=== PATIENT | male | born 1935 | race Caucasian/White ===

== ENCOUNTER 2017-01-25 14:11 | Outpatient (CLI) | payer MEDICARE, OTHER | END 2017-01-25 14:12 | disposition critical access hospital (66) | DX: R31.9 Hematuria, unspecified (principal); R42 Dizziness and giddiness | CPT/HCPCS: A0425; A0427 ==

== ENCOUNTER 2017-01-25 14:44 | Emergency (ER) | payer MEDICARE, OTHER ==
--- NOTE | 2017-01-25 15:14 | ED Physician Documentation ---
History of Present Illness - Stated complaint Stated Complaint: HEMATURIA - Chief complaint Chief Complaint: General - History obtained from History obtained from: Patient, Family, EMS - History of Present Illness Timing: How many days ago (2) Pain level max: 0 Pain level now: 0 Improved by: nothing Worsened by: nothing - Additonal information Additional information: Patient presents to the emergency department with hematuria for the last 2 days. Recently had his warfarin dose increased. Supposed to have his INR checked tomorrow. Denies any urinary frequency, discomfort. Denies any recent trauma. Denies any back pain or abdominal pain. States this has happened him in the past with warfarin. Review of Systems Constitutional: denies: Fever, Chills Respiratory: denies: Cough GI: denies: Nausea, Vomiting, Diarrhea Skin: denies: Rash Musculoskeletal: denies: Neck pain, Back pain Neurologic: denies: Focal weakness, Numbness, Headache PD PAST MEDICAL HISTORY - Past Medical History Cardiovascular: Congestive heart failure, Hypertension, High cholesterol, Coronary artery disease, [place], Atrial fibrillation, Arrhythmia, Other Respiratory: Pneumonia, Shortness of breath Neuro: None Endocrine/Autoimmune: Type 2 diabetes GI: None : None Psych: None Musculoskeletal: Osteoarthritis, Chronic back pain Derm: Other - Past Surgical History Past Surgical History: Yes Ortho: Hip replacement Cardiovascular: CABG, Pacemaker, Cardiac catheterization - Present Medications Home Medications: Ambulatory Orders Medication Instructions Recorded Confirmed Aspirin [Aspir 81] 81 mg PO DAILY 11/24/15 11/24/15 Dofetilide [Tikosyn] 250 mcg PO BID 11/24/15 11/24/15 Isosorbide Mononitrate [Isosorbide 30 mg PO DAILY 11/24/15 11/24/15 Mononitrate ER] Levothyroxine [Synthroid] 75 mcg PO QDAC 11/24/15 11/24/15 Losartan [Cozaar] 50 mg PO DAILY 11/24/15 11/24/15 RX: Furosemide 40 mg PO DAILY 11/24/15 11/24/15 RX: Metoprolol Succinate 50 mg PO DAILY 11/24/15 11/24/15 RX: Simvastatin 80 mg PO ACHS 11/24/15 11/24/15 Warfarin [Coumadin] 5 mg PO DAILY 11/24/15 11/24/15 - Allergies Allergies/Adverse Reactions: Allergies Allergy/AdvReac Type Severity Reaction Status Date / Time No Known Drug Allergies Allergy Verified 11/24/15 14:30 - Social History Does the pt smoke?: No Smoking Status: Never smoker Does the pt drink ETOH?: No Does the pt have substance abuse?: No - Immunizations Immunizations are current?: No Immunizations: No immun PD ED PE NORMAL - Vitals Vital signs reviewed: Yes - General General: Alert and oriented X 3, No acute distress, Well developed/nourished - HEENT HEENT: Moist mucous membranes - Neck Neck: Supple, no meningeal sign - Cardiac Cardiac: RRR, Strong equal pulses - Respiratory Respiratory: No respiratory distress, Clear bilaterally - Abdomen Abdomen: Soft, Non tender, Non distended - Back Back: No CVA TTP, No spinal TTP - Derm Derm: Warm and dry, No rash - Neuro Neuro: Alert and oriented X 3 - Psych Psych: Normal mood, Normal affect Results - Vitals Vitals: Vital Signs - 24 hr 01/25/17 01/25/17 14:50 16:28 Temperature 35.9 C L Heart Rate 59 L 67 Respiratory 16 22 Rate Blood Pressure 143/75 H 121/78 O2 Saturation 99 98 Oxygen O2 Source Room air - Labs Labs: Laboratory Tests 01/25/17 01/25/17 01/25/17 15:00 15:19 15:19 WBC 7.0 RBC 3.58 L Hgb 11.6 L Hct 35.5 L MCV 99.2 H MCH 32.4 H MCHC 32.6 RDW 13.6 Plt Count 202 MPV 8.8 Neut # 3.2 Lymph # 2.6 Cass # 0.9 Eos # 0.2 Baso # 0.1 Absolute Nucleated RBC 0.00 Nucleated RBCs 0.0 PT 25.6 H INR 2.2 H Sodium Potassium Chloride Carbon Dioxide Anion Gap BUN Creatinine Estimated GFR (MDRD) Glucose Calcium Total Bilirubin AST ALT Alkaline Phosphatase Total Protein Albumin Globulin Albumin/Globulin Ratio Lipase Urine Color RED/BLOODY Urine Clarity BLOODY Urine pH 6.5 Ur Specific [place] 1.010 Urine Protein TRACE Urine Glucose (UA) NEGATIVE Urine Ketones NEGATIVE Urine Occult Blood LARGE H Urine Nitrite NEGATIVE Urine Bilirubin NEGATIVE Urine Urobilinogen 0.2 (NORMAL) Ur Leukocyte Esterase NEGATIVE Urine RBC TNTC H Urine WBC 0-3 Ur Squamous Epith Cells NONE SEEN Urine Bacteria None Seen Ur Microscopic Review INDICATED Urine Culture Comments NOT INDICATED 01/25/17 15:19 WBC RBC Hgb Hct MCV MCH MCHC RDW Plt Count MPV Neut # Lymph # Cass # Eos # Baso # Absolute Nucleated RBC Nucleated RBCs PT INR Sodium 139 Potassium 4.5 Chloride 104 Carbon Dioxide 26 Anion Gap 9.0 BUN 37 H Creatinine 1.7 H Estimated GFR (MDRD) 39 L Glucose 68 L Calcium 8.9 Total Bilirubin 0.5 AST 18 ALT 16 Alkaline Phosphatase 86 Total Protein 7.5 Albumin 4.2 Globulin 3.3 Albumin/Globulin Ratio 1.3 Lipase 77 H Urine Color Urine Clarity Urine pH Ur Specific [place] Urine Protein Urine Glucose (UA) Urine Ketones Urine Occult Blood Urine Nitrite Urine Bilirubin Urine Urobilinogen Ur Leukocyte Esterase Urine RBC Urine WBC Ur Squamous Epith Cells Urine Bacteria Ur Microscopic Review Urine Culture Comments PD MEDICAL DECISION MAKING - ED course Complexity details: reviewed results, re-evaluated patient, considered differential, d/w patient, d/w family ED course: Patient presents to the emergency department with hematuria. His hemoglobin is stable from prior visits. Creatinine is stable from prior visits. His INR is therapeutic. We will have him hold his warfarin for the next 2-3 days and see if this clears the hematuria. He will follow-up with his doctor later this week for further evaluation if the hematuria does not clear, including potential ultrasound or CT scan. Patient is well-appearing, nontoxic. Otherwise asymptomatic here. Patient counseled regarding signs and symptoms for which I believe and urgent re-evaluation would be necessary. Patient with good understanding of and agreement to plan and is comfortable going home at this time This document was made in part using voice recognition software. While efforts are made to proofread this document, sound alike and grammatical errors may occur. Departure - Departure Disposition: 01 Home, Self Care Clinical Impression: Hematuria Condition: Good Instructions: ED Hematuria Follow-Up: Oswaldo Shepherd MD [Primary Care Provider] - Within 3 Days Comments: Stop your warfarin for the next 3 days. Return if you worsen. Discharge Date/Time: 01/25/17 16:28
[2017-01-25 15:22] LABS: BASOPHILS # (AUTO) 0.1 10^3/uL (0.0-0.1); LYMPHOCYTES # (AUTO) 2.6 10^3/uL (1.5-3.5); MONOCYTES # (AUTO) 0.9 10^3/uL (0.0-1.0)
[2017-01-25 15:25] LABS: EOSINOPHILS # (AUTO) 0.2 10^3/uL (0.0-0.7); EOSINOPHILS % (AUTO) 3.2 %; HCT - HEMATOCRIT 35.5 % (42.0-52.0); HGB - HEMOGLOBIN 11.6 g/dL (14.0-18.0); LYMPHOCYTES % (AUTO) 37.7 %; MEAN CORPUSCULAR HEMOGLOBIN 32.4 pg (27.0-31.0); MEAN CORPUSCULAR HGB CONC 32.6 g/dL (32.0-36.0); MEAN CORPUSCULAR VOLUME 99.2 fL (80.0-94.0); MEAN PLATELET VOLUME 8.8 fL (7.4-11.4); MONOCYTES % (AUTO) 12.9 %; NEUTROPHILS # (AUTO) 3.2 10^3/uL (1.5-6.6); NEUTROPHILS % (AUTO) 45.2 %; RED BLOOD COUNT 3.58 10^6/uL (4.70-6.10); RED CELL DISTRIBUTION WIDTH 13.6 % (12.0-15.0)
[2017-01-25 15:32] LABS: BILIRUBIN,URINE NEGATIVE (NEGATIVE); PH,URINE 6.5 PH (5.0-7.5)
[2017-01-25 15:35] LABS: INR 2.2 (0.8-1.2); PT - PROTHROMBIN TIME 25.6 secs (9.9-12.6)
[2017-01-25 15:36] LABS: ALBUMIN/GLOBULIN RATIO 1.3 (1.0-2.2); BILIRUBIN,TOTAL 0.5 mg/dL (0.2-1.0); CALCIUM 8.9 mg/dL (8.5-10.3); CREATININE 1.7 mg/dL (0.6-1.2); POTASSIUM 4.5 mmol/L (3.5-5.0); TOTAL PROTEIN 7.5 g/dL (6.7-8.2)
[2017-01-25 15:40] LABS: UA w/ MICROSCOPIC CHARGE YES
[2017-01-25 15:42] LABS: UR CULTURE IF IND NOT INDICATED; WBC,URINE 0-3 /HPF (0-3)
[2017-01-25 16:28] VITALS: BP 121/78
== END 2017-01-25 16:28 | disposition home or self-care (01) ==
LOC: EDUNIT# → SUPCPDRO 14:44 → ED 14:44
DX: R31.9 Hematuria, unspecified (principal); Z79.01 Long term (current) use of anticoagulants; Z79.82 Long term (current) use of aspirin; I48.91 Unspecified atrial fibrillation; I11.0 Hypertensive heart disease with heart failure; I50.9 Heart failure, unspecified; I25.10 Atherosclerotic heart disease of native coronary artery without angina pectoris; I25.2 Old myocardial infarction; Z95.1 Presence of aortocoronary bypass graft; Z95.0 Presence of cardiac pacemaker; E11.9 Type 2 diabetes mellitus without complications
CPT/HCPCS: 36415; 80053; 81001; 81003; 83690; 85025; 85610; 87086; 99283

== ENCOUNTER 2018-09-25 03:38 | Outpatient (CLI) | payer MEDICARE, OTHER | END 2018-09-25 03:39 | disposition critical access hospital (66) | LOC: EMS 03:38 | PROVIDERS: ATTEND Surgery | DX: R06.02 Shortness of breath (principal) | CPT/HCPCS: A0425; A0427 ==

== ENCOUNTER 2018-09-25 04:09 | Emergency (ER) | payer MEDICARE, OTHER ==
[2018-09-25] MEDS ORDERED: FUROSEMIDE 40 MG/4 ML VIAL IVP STA (04:19)
--- NOTE | 2018-09-25 04:21 | ED Physician Documentation ---
PD HPI DYSPNEA - Stated complaint Stated Complaint: SOA - Chief complaint Chief Complaint: Resp - History obtained from History obtained from: Patient, EMS - History of Present Illness Timing - onset: Enter time (1999), Last night Timing - onset during: Rest Timing - duration: Hours Timing - details: Gradual onset, Still present Inciting event(s): Exercise, Other (excessive salt) Improved by: O2, Inhaler/neb, Rest, Sitting up Worsened by: Exertion, Laying flat Associated symptoms: Wheezing, Chest pain / discomfort Similar symptoms before: Diagnosis (CHF) Recently seen: Admitted - Additional information Additional information: 82-year-old male with a history of congestive heart failure valvular heart disease a pacemaker in place and coronary artery disease has recently been admitted to [facility] in [place] and he has refused valve replacement to the aortic valve. He has been doing well at home is able to ambulate 40 feet without shortness of breath and yesterday he went out and picked some apples came inside and elapsed. He had salmon for dinner and then yesterday evening he began to get short of breath with some wheezing. This progressed through the night and became intolerable and he called the ambulance. He received a DuoNeb treatment in route to the hospital with some improvement. He was given extra torsemide by his who recognized this as an episode of congestive heart failure. He has been up to [place] twice in the past month he initially refused an angiogram and then when he did get the angiogram done he was advised that he would need a valve replacement and he has decided against this. He is now maintained on diuretics and blood pressure medication. He takes nitro not infre quently. Review of Systems Constitutional: denies: Fever, Chills, Myalgias, Fatigue, Sweats Eyes: denies: Decreased vision Ears: denies: Ear pain Nose: denies: Rhinorrhea / runny nose, Congestion Throat: denies: Sore throat Cardiac: denies: Chest pain / pressure, Palpitations Respiratory: reports: Dyspnea, Cough, Wheezing GI: denies: Abdominal Pain, Nausea, Vomiting : denies: Dysuria, Frequency Skin: denies: Rash, Lesions Musculoskeletal: denies: Neck pain, Back pain, Extremity pain Neurologic: denies: Generalized weakness, Focal weakness, Numbness PD PAST MEDICAL HISTORY - Past Medical History Cardiovascular: Congestive heart failure, Hypertension, High cholesterol, Coronary artery disease, [place], Atrial fibrillation, Arrhythmia, Other Respiratory: Pneumonia, Shortness of breath Endocrine/Autoimmune: Type 2 diabetes GI: None : None Psych: None Musculoskeletal: Osteoarthritis, Chronic back pain Derm: Other - Past Surgical History Past Surgical History: Yes Ortho: Hip replacement Cardiovascular: CABG, Pacemaker, Cardiac catheterization - Present Medications Home Medications: Ambulatory Orders Medication Instructions Recorded Confirmed Aspirin [Aspir 81] 81 mg PO DAILY 11/24/15 11/24/15 Levothyroxine [Synthroid] 75 mcg PO QDAC 11/24/15 09/25/18 Metoprolol Succinate 25 mg PO DAILY 11/24/15 09/25/18 Warfarin [Coumadin] 5 mg PO DAILY 11/24/15 09/25/18 Atorvastatin Calcium 40 mg PO QPM 09/25/18 09/25/18 Gabapentin 1 tab PO QPM 09/25/18 09/25/18 Gabapentin 300 mg PO DAILY 09/25/18 09/25/18 Glimepiride 1 mg PO DAILY 09/25/18 09/25/18 Nitroglycerin [Nitrostat] 0.4 mg SL DAILY PRN 09/25/18 09/25/18 Torsemide 1 - 2 tab PO DAILY 09/25/18 09/25/18 - Allergies Allergies/Adverse Reactions: Allergies Allergy/AdvReac Type Severity Reaction Status Date / Time No Known Drug Allergies Allergy Verified 09/25/18 04:45 - Social History Does the pt smoke?: No Smoking Status: Never smoker Does the pt drink ETOH?: No Does the pt have substance abuse?: No - Immunizations Immunizations are current?: No Immunizations: No immun PD ED PE NORMAL - Vitals Vital signs reviewed: Yes (tachypneic and hypertensive) - General General: Alert and oriented X 3, Well developed/nourished, Other (tachpneic at rest/ ) - HEENT HEENT: Atraumatic, PERRL, EOMI - Neck Neck: Supple, no meningeal sign, No bony TTP - Cardiac Cardiac: RRR, Other (2/6 holosystolic murmer at LSB) - Respiratory Respiratory: Other (tachypnea at rest with rales to mid lung bilaterally) - Abdomen Abdomen: Soft, Non tender - Back Back: No CVA TTP, No spinal TTP - Derm Derm: Normal color, Warm and dry, No rash - Extremities Extremities: No deformity, No edema, Other (skin is very dry and ankles are skinny ) - Neuro Neuro: Alert and oriented X 3, 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, No motor deficit, No sensory deficit, Normal speech Eye Opening: Spontaneous Motor: Obeys Commands Verbal: Oriented GCS Score: 15 - Psych Psych: Normal mood, Normal affect Results - Vitals Vitals: Vital Signs - 24 hr 09/25/18 09/25/18 09/25/18 04:09 04:37 04:56 Temperature 36.8 C Heart Rate 68 63 60 Respiratory 29 H 19 18 Rate Blood Pressure 154/95 H 156/79 H 152/83 H O2 Saturation 94 94 94 09/25/18 09/25/18 09/25/18 05:20 05:50 05:55 Temperature 36.2 C L Heart Rate 60 61 61 Respiratory 18 19 20 Rate Blood Pressure 153/75 H 151/81 H 119/73 O2 Saturation 94 94 94 Oxygen O2 Source Room air - EKG (time done) 0422 Rate: Rate (enter#) (68) Rhythm: Atrial fibrillation Ischemia: ST depression, T wave inversion Compare to prior EKG: Changed from prior EKG (SPT 11-24-2015 the rhythm has changed from paced to afib and the ishemic changes are present) Computer interpretation: Agree with computer - Labs Labs: Laboratory Tests 09/25/18 09/25/18 09/25/18 04:10 04:37 04:37 WBC 6.8 RBC 3.44 L Hgb 11.5 L Hct 34.4 L MCV 100.0 H MCH 33.5 H MCHC 33.4 RDW 14.4 Plt Count 187 MPV 8.3 Neut # (Auto) 4.6 Lymph # (Auto) 1.3 L [place] # (Auto) 0.5 Eos # (Auto) 0.2 Baso # (Auto) 0.1 Absolute Nucleated RBC 0.00 Nucleated RBC % 0.0 PT INR Sodium 137 Potassium 4.8 Chloride 105 Carbon Dioxide 24 Anion Gap 8.0 BUN 30 H Creatinine 1.8 H Estimated GFR (MDRD) 36 L Glucose 152 H Calcium 8.4 L Total Bilirubin 0.9 AST 23 ALT 18 Alkaline Phosphatase 107 Troponin I B-Natriuretic Peptide Total Protein 7.4 Albumin 3.8 Globulin 3.6 Albumin/Globulin Ratio 1.1 Lipase 76 H Urine Color YELLOW Urine Clarity CLEAR Urine pH 6.5 Ur Specific [place] 1.010 Urine Protein NEGATIVE Urine Glucose (UA) NEGATIVE Urine Ketones NEGATIVE Urine Occult Blood TRACE-INTA Urine Nitrite NEGATIVE Urine Bilirubin NEGATIVE Urine Urobilinogen 0.2 (NORMAL) Ur Leukocyte Esterase NEGATIVE Ur Microscopic Review NOT INDICATED Urine Culture Comments NOT INDICATED 09/25/18 09/25/18 09/25/18 04:37 04:37 04:37 WBC RBC Hgb Hct MCV MCH MCHC RDW Plt Count MPV Neut # (Auto) Lymph # (Auto) [place] # (Auto) Eos # (Auto) Baso # (Auto) Absolute Nucleated RBC Nucleated RBC % PT 15.5 H INR 1.4 H Sodium Potassium Chloride Carbon Dioxide Anion Gap BUN Creatinine Estimated GFR (MDRD) Glucose Calcium Total Bilirubin AST ALT Alkaline Phosphatase Troponin I < 0.04 B-Natriuretic Peptide 668 H Total Protein Albumin Globulin Albumin/Globulin Ratio Lipase Urine Color Urine Clarity Urine pH Ur Specific [place] Urine Protein Urine Glucose (UA) Urine Ketones Urine Occult Blood Urine Nitrite Urine Bilirubin Urine Urobilinogen Ur Leukocyte Esterase Ur Microscopic Review Urine Culture Comments - Rads (name of study) 1 view chest Radiology: Prelim report reviewed (Impression: Mild CHF and low lung volumes.), EMP read indepedently, See rad report Procedures - IVC sono (time) 0420 Bedside IVC sono: IVC measures (cm) (2.88), High CVP, Fluid overload PD MEDICAL DECISION MAKING - ED course Complexity details: reviewed old records, reviewed results, re-evaluated patient, considered differential, d/w patient, d/w family ED course: 82-year-old male with advanced coronary artery disease and a congestive heart failure with aortic stenosis has developed flash pulmonary edema and he is administered Lasix 40 mg intravenously here with improvement in his breathing. He wants to go home this morning. He and his are in agreement with this and this does appear appropriate given the circumstances of his refusal for more advanced treatment. I suspect his exacerbation of CHF this morning is related to his exercise yesterday and his consumption of salmon with a high salt content. Departure - Departure Disposition: 01 Home, Self Care Clinical Impression: Flash pulmonary edema Condition: Stable Instructions: ED CHF General Follow-Up: Oswaldo Shepherd MD [Primary Care Provider] -
[2018-09-25 04:37] LABS: BILIRUBIN,URINE NEGATIVE (NEGATIVE); CLARITY,URINE CLEAR (CLEAR); GLUCOSE, URINE (UA) NEGATIVE (NEGATIVE); KETONES,URINE (UA) NEGATIVE (NEGATIVE); LEUKOCYTE ESTERASE, URINE NEGATIVE (NEGATIVE); NITRITE,URINE NEGATIVE (NEGATIVE); OCCULT BLOOD,URINE TRACE-INTA (NEGATIVE); PH,URINE 6.5 PH (5.0-7.5); PROTEIN,URINE NEGATIVE (NEGATIVE); UROBILINOGEN,URINE 0.2 (NORMAL) E.U./dL (NORMAL)
[2018-09-25 04:44] LABS: BASOPHILS # (AUTO) 0.1 10^3/uL (0.0-0.1); BASOPHILS % (AUTO) 2.1 %; EOSINOPHILS # (AUTO) 0.2 10^3/uL (0.0-0.7); EOSINOPHILS % (AUTO) 2.9 %; HGB - HEMOGLOBIN 11.5 g/dL (14.0-18.0); LYMPHOCYTES # (AUTO) 1.3 10^3/uL (1.5-3.5); LYMPHOCYTES % (AUTO) 19.3 %; MEAN CORPUSCULAR HEMOGLOBIN 33.5 pg (27.0-31.0); MEAN CORPUSCULAR HGB CONC 33.4 g/dL (32.0-36.0); MEAN PLATELET VOLUME 8.3 fL (7.4-11.4); MONOCYTES # (AUTO) 0.5 10^3/uL (0.0-1.0); MONOCYTES % (AUTO) 7.3 %; NEUTROPHILS # (AUTO) 4.6 10^3/uL (1.5-6.6); NEUTROPHILS % (AUTO) 68.4 %; PLT - PLATELET COUNT 187 10^3/uL (130-450); RED BLOOD COUNT 3.44 10^6/uL (4.70-6.10); RED CELL DISTRIBUTION WIDTH 14.4 % (12.0-15.0); WHITE BLOOD COUNT 6.8 x10^3/uL (4.8-10.8)
--- NOTE | 2018-09-25 04:54 | XRAY Report ---
Reason: chest pain Procedure Date: 09/25/2018 Accession Number: [id number] / [id number] Procedure: XR - Chest 1 View X-Ray CPT Code: 13658 FULL RESULT: EXAM: CHEST RADIOGRAPHY EXAM DATE: 09/25/2018 04:47 AM. CLINICAL HISTORY: Chest pain. COMPARISON: CHEST 2 VIEW PA/LAT 11/24/2015 3:47 PM CHEST W/O 11/24/2015 9:16 PM. TECHNIQUE: 1 view. FINDINGS: Lungs/Pleura: Diffuse mild interstitial opacities. No large effusion. No gross pneumothorax. Mediastinum: Mild cardiomegaly. No mediastinal shift. Other: Post heart surgery. Stable left pacer. Stable left hemidiaphragm elevation and low lung volumes. IMPRESSION: Mild CHF and low lung volumes. RADIA
[2018-09-25 04:56] LABS: ALBUMIN 3.8 g/dL (3.2-5.5); ALBUMIN/GLOBULIN RATIO 1.1 (1.0-2.2); BILIRUBIN,TOTAL 0.9 mg/dL (0.2-1.0); CALCIUM 8.4 mg/dL (8.5-10.3); CREATININE 1.8 mg/dL (0.6-1.2); TOTAL PROTEIN 7.4 g/dL (6.7-8.2)
[2018-09-25 05:47] LABS: INR 1.4 (0.8-1.2); PT - PROTHROMBIN TIME 15.5 secs (9.9-12.6)
[2018-09-25] MEDS ORDERED: NITROGLYCERIN SL 0.4 MG TABLET SL STA (05:47)
[2018-09-25 05:58] VITALS: BP 119/73
== END 2018-09-25 06:20 | disposition home or self-care (01) ==
LOC: EDUNIT# → ED 04:09
DX: I50.1 Left ventricular failure, unspecified (principal); I10 Essential (primary) hypertension; I48.91 Unspecified atrial fibrillation; E11.9 Type 2 diabetes mellitus without complications; Z79.82 Long term (current) use of aspirin; Z95.0 Presence of cardiac pacemaker; Z79.01 Long term (current) use of anticoagulants
CPT/HCPCS: 36415; 71045; 80053; 81003; 83690; 83880; 84484; 85025; 85610; 93005; 96374; 99284; A9270; 81001; 87086